=== PATIENT | female | born 1990 | race Hispanic/Latino ===

== ENCOUNTER 2017-06-17 16:20 | Inpatient (IN) | payer OTHER, SELFPAY ==
[2017-06-17] MEDS ORDERED: Metoclopramide HCl 10 MG/2 ML VIAL ONE (16:58)
[2017-06-17 17:09] LABS: #Basophils 0.1 thou/uL (0.0-0.2); #Eosinphils 0.2 thou/uL (0.0-0.7); #Lymphocytes 4.5 thou/uL (1.20-3.40); #Monocytes 0.6 thou/uL (0.11-0.59); #Neutrophils 5.8 thou/uL (1.40-6.50); %Basophils 0.5 % (0.0-1.0); %Lymphocytes 40.3 % (21.0-51.0); %Monocytes 5.5 % (0.0-10.0); Hematocrit 46.4 % (36.0-47.0); Mean Platelet Volume 6.8 fL (7.4-10.4); Red Blood Cell (RBC) Count 5.88 mill/uL (4.20-5.40); White Blood Cell (WBC) Count 11.1 thou/uL (4.8-10.8)
[2017-06-17 17:36] LABS: ALT (SGPT) 41 U/L (8-55); AST (SGOT) 40 U/L (5-34); Alkaline Phosphatase 108 U/L (40-150); Anion Gap 17 mmol/L (10-20); BUN (Urea Nitrogen) 8 mg/dL (7.0-18.7); Bilirubin, Total 0.3 mg/dL (0.2-1.2); Calc. Creatinine Clearance 0 mL/min (70-130); Calcium 9.7 mg/dL (7.8-10.44); Carbon Dioxide 20 mmol/L (22-29); Chloride 100 mmol/L (98-107); Estimated GFR-MDRD Greater than 90; Globulin 4.4 g/dL (2.4-3.5); Protein, Total 8.3 g/dL (6.0-8.3)
[2017-06-17] MEDS ORDERED: Ketorolac Tromethamine 30 MG/ML VIAL ONE (17:37)
[2017-06-17 18:53] LABS: Prothrombin Time 13.8 SEC (12.0-14.7)
[2017-06-17 18:54] LABS: PTT 30.9 SEC (22.9-36.1)
[2017-06-17 19:05] LABS: Troponin I Less than 0.010 ng/mL (< 0.028)
[2017-06-17] MEDS ORDERED: Sodium Chloride 0.9% 1,000 ML IV SCH (19:35)
[2017-06-17] MEDS ORDERED: Ondansetron HCl/PF 4 MG/2 ML Vial IVP PRN (19:35)
[2017-06-17] MEDS ORDERED: Ondansetron ODT 4 MG TAB SL PRN (19:35)
[2017-06-17 19:56] VITALS: BMI 37.6
[2017-06-18] MEDS ORDERED: Milk Of Magnesia 30 ML UDCUP PO PRN (00:57)
[2017-06-18] MEDS ORDERED: Ondansetron HCl/PF 4 MG/2 ML Vial IVP PRN (00:57)
[2017-06-18] MEDS ORDERED: Senokot 8.6 MG TAB PO PRN (00:57)
[2017-06-18] MEDS ORDERED: Dextrose 5% in Water 1,000 ML IV PRN (00:57)
[2017-06-18] MEDS ORDERED: Dextrose 50% Abboject 50 ML SYRINGE SLOW IVP PRN (00:57)
[2017-06-18] MEDS ORDERED: Acetaminophen 325 MG TAB PO PRN (00:57)
[2017-06-18] MEDS ORDERED: Ondansetron ODT 4 MG TAB PO PRN (00:57)
[2017-06-18] MEDS ORDERED: Insulin Regular 300 UNITS/3 ML VIAL SC PRN ×2 (00:57)
[2017-06-18] MEDS ORDERED: Calcium Carbonate 500 MG ChewTAB PO PRN (00:57)
[2017-06-18] MEDS ORDERED: Mag-Al 1200 mg/1200 mg/30 ML UDCUP PO PRN (00:57)
[2017-06-18] MEDS ORDERED: Diabetic Tussin 200 MG/10 ML UDCUP PO PRN (00:59)
[2017-06-18] MEDS ORDERED: Labetalol HCl 100 MG/20 ML VIAL SLOW IVP PRN (00:59)
[2017-06-18] MEDS ORDERED: Ibuprofen 200 MG TAB PO PRN (01:01)
--- NOTE | 2017-06-18 01:46 | HP ---
DATE OF ADMISSION: 06/17/2017 Patient was seen and examined on 06/17/2017. PRIMARY CARE PHYSICIAN: Josee Allen NP, at [facility]. CHIEF COMPLAINT: Headache. HISTORY OF PRESENT ILLNESS: The patient is a 27-year-old female who was recently diagnosed with hyp erthyroidism, currently on methimazole, and migraine headaches in the past, presented to the [facility] with headache that started yesterday afternoon while she was at home. It was constant, throbbing, mainly frontal, aggravated by light. She felt she had some dizziness and nausea that has more or l ess resolved. She denied any phonophobia. The headache was throbbing, moderate in intensity earlie r; however, at the time of my interview, the headache has significantly improved. She has a history of migraines in the past and used to be on suppressive therapy that was later discontinued. She is currently on methimazole for hyperthyroidism that was diagnosed a month ago by her PCP. She was ad vised to follow up with snowboard instructor, however, due to financial reasons, she has not seen an endo crinologist yet. No chest pain, palpitations, or syncope reported. Her test in the emerg ency room was negative. She received Toradol, Reglan, IV fluid, and IV propranolol in the emergency room. Initial vital signs in the emergency room showed temperature 98.4, respirations 19, pulse 10 5 with blood pressure of 140/99 with O2 saturation 99% on room air. Her current heart rate is in 90 s. PAST MEDICAL HISTORY: 1. Polycystic ovarian syndrome. 2. History of migraines in the past. 3. Depression without any suicidal ideation. 4. Hypertension. 5. Diabetes mellitus, type 2. 6. History of tuberculosis that was diagnosed with a lymph node biopsy. She completed 1 year of tr eatment at the age of 13. PAST SURGICAL HISTORY: Lymph node biopsy. ALLERGIES: Patient denies any drug allergies. CURRENT HOME MEDICATIONS: Per patient report, patient is on methimazole, metformin, glipizide, and Aldactone. Exact dosages yet to be confirmed. SOCIAL HISTORY: Patient currently lives at home with her family. No smoking, alcohol, or drug use. FAMILY HISTORY: Positive for hypertension and diabetes mellitus, type 2. REVIEW OF SYSTEMS: The following complete review of systems was negative, unless otherwise mentione d in the HPI or below: Constitutional: Weight loss or gain, ability to conduct usual activities. Skin: Rash, itching. Eyes: Double vision, pain. ENT/Mouth: Nose bleeding, neck stiffness, pain, tenderness. Cardiovascular: Palpitations, dyspnea on exertion, orthopnea. Respiratory: Shortness of breath, wheezing, cough, hemoptysis, fever or night sweats. Gastrointestinal: Poor appetite, abdominal pain, heartburn, nausea, vomiting, constipation, or diar megha. Genitourinary: Urgency, frequency, dysuria, nocturia. Musculoskeletal: Pain, swelling. Neurologic/Psychiatric: Anxiety, depression. Allergy/Immunologic: Skin rash, bleeding tendency. PHYSICAL EXAMINATION: VITAL SIGNS: As discussed above. GENERAL: A 27-year-old female, in no apparent distress. Headache has significantly improved. She denies any nausea and dizziness at this time. HEENT: Head is atraumatic, normocephalic. Sclerae anicteric. Moist mucous membranes. No oral les ion. NECK: Supple, no JVD appreciated. No carotid bruit. LUNGS: Clear to auscultation bilaterally. HEART: S1 and S2 present. Regular rate and rhythm. No murmurs, rubs, or gallops. ABDOMEN: Soft, nontender, obese. Bowel sounds present. EXTREMITIES: No edema or calf tenderness. NEUROLOGIC: Grossly nonfocal, moves all four extremities. PSYCHIATRIC: Alert, awake, oriented x3. SKIN: Warm and dry. There was no pretibial rash. LYMPH NODES: No palpable lymph nodes in the neck. NEUROLOGY: Grossly nonfocal, moves all four extremities. PSYCHIATRY: Alert and awake. LABORATORY DATA AND X-RAY FINDINGS: 1. CBC showed WBC of 11.1, hemoglobin 15.2, hematocrit 46.4, platelets of 424. PT, INR, PTT are in normal range. 2. TSH was less than 0.0025 with free T4 of 1.93. Cardiac enzymes were normal. BNP 13.1. Sodium was 132, potassium was 4.5, chloride of 100, bicarb 20, BUN of 8, creatinine 0.62, glucose 234. 3. Chest x-ray by my review was negative for infiltrate. 4. EKG by my review showed normal sinus rhythm without significant ST-T wave changes. IMPRESSION AND PLAN: 1. Headache, consistent with migraine, improved with Toradol and Reglan. 2. Recently diagnosed with Graves disease. Patient is followed by her PCP and is currently on meth imazole, which will be continued. She probably does not need a beta narinder at this time. Her hear t rate is controlled. 3. Diabetes mellitus, type 2. We will start her on insulin sliding scale. We will resume home med ications once confirmed. We will hold metformin for now. 4. Polycystic ovarian syndrome. We will continue Aldactone. 5. History of tuberculosis in the past, completed treatment. 6. Depression without any suicidal ideation. 7. Dehydration with hyponatremia. Patient received IV fluids in the emergency room. She currently denies any nausea. 8. Hypertension, controlled at this time. 9. Family history of diabetes and hypertension 10. Obesity with a BMI 37.7. 11. Disposition probably in 24 hours. Plan of care was discussed with the patient. She stated understanding.
[2017-06-18] MEDS ORDERED: glipiZIDE 5 MG TAB PO SCH (07:30)
[2017-06-18] MEDS: Methimazole 5 MG TAB PO SCH ×2 (08:07→13:09)
--- NOTE | 2017-06-18 08:15 | RAD ---
SINGLE VIEW OF THE CHEST: Comparison: None. History: Headache, diabetes, dyspnea. FINDINGS: Single view of the chest shows a normal sized cardiomediastinal silhouette. There is no evidence of consolidation, mass, or pleural effusion. The bones are unremarkable. IMPRESSION: No evidence of acute cardiopulmonary disease. POS: [facility]
--- NOTE | 2017-06-18 08:21 | ULT ---
THYROID ULTRASOUND: HISTORY: Severe hyperthyroidism. FINDINGS: Real-time imaging of the right and left lobes of the thyroid were performed. The right lobe measure s 1.8 x 1.9 x 4.4 cm and the left lobe 1.5 x 1.5 x 4.3 cm. Both the right and left lobes have very heterogeneous and somewhat full appearance. There does not appear to be a significant increase in v ascularity. No discrete nodules are demonstrated. IMPRESSION: Heterogeneous gland without definite discrete nodules. POS: [facility]
--- NOTE | 2017-06-18 11:16 | PDOC.PN ---
- Subjective Encounter Start Date: 06/18/17 Encounter Start Time: 11:13 Ms Childs says she is feeling much better. Her headache is completely resolved. - Objective Resuscitation Status: Resuscitation Status FULL:Full Resuscitation MAR Reviewed: Yes Vital Signs & Weight: Vital Signs (12 hours) Temp Pulse Resp BP Pulse Ox 06/18/17 08:31 98.6 F 92 16 131/63 99 06/18/17 04:00 97.8 F 99 18 106/59 L 97 06/18/17 01:31 98 06/18/17 00:00 97.7 F 93 18 114/63 98 Weight Weight 199 lb 6 oz Result Diagrams: 06/17/17 16:53 06/17/17 16:53 Phys Exam - Physical Examination HEENT: PERRLA Respiratory: no wheezing, no rales, no rhonchi, clear to auscultation bilateral Cardiovascular: RRR, no significant murmur, no rub Gastrointestinal: soft, non-tender, positive bowel sounds Musculoskeletal: no edema Dx/Plan (1) Migraine headache Code(s): G43.909 - MIGRAINE, UNSP, NOT INTRACTABLE, WITHOUT STATUS MIGRAINOSUS Status: Acute (2) Hyperthyroidism Code(s): E05.90 - THYROTOXICOSIS, UNSP WITHOUT THYROTOXIC CRISIS OR STORM Status: Acute - Plan * Migraine Headache- will add low dose Propranolol to aid with migraine prophylaxis, as well as her hyperthyroidism * She is stable for discharge home.
[2017-06-18 12:48] VITALS: BP 127/73; TEMP 98.4
--- NOTE | 2017-06-18 13:10 | DIS ---
DATE OF ADMISSION: 06/17/2017 DATE OF DISCHARGE: 06/18/2017 PRIMARY CARE PHYSICIAN: Josee Allen NP at the [facility]. DISCHARGE DISPOSITION: Home. PRIMARY DISCHARGE DIAGNOSES: 1. Migraine headache. 2. History of hyperthyroidism secondary to Graves disease. 3. Hypertension. 4. Diabetes mellitus, type 2. 5. Polycystic ovarian syndrome. DISCHARGE MEDICATIONS: Propranolol 5 mg twice a day will be added. She is to continue methimazole 10 mg daily, spironolactone 25 mg twice daily, glipizide 10 mg twice a day, and metformin 1000 mg tw ice daily. PROCEDURES DONE DURING ADMISSION: The patient had a thyroid ultrasound and showed some heterogeneou s gland without any discrete nodules. CODE STATUS: FULL CODE. ALLERGIES: No known drug allergies. HOSPITAL COURSE: Ms. Childs is a pleasant 27-year-old female, who presented to the emergency room w ith severe headache. She says she has a history of migraine headaches, but her usual medication did not help. The pain was constant, throbbing, aggravated by light. She said it was very similar to previous migraine headache. She was seen in the ER and was given Toradol and Reglan IV as well as p ropranolol. When we came to see her this morning, the patient's headache has completely resolved. She says she feels much better. She is not sure what medication she uses for her migraine headache to abort the headache, but she says that she has some of this. It was also noted that her heart rat e was slightly elevated in the 90s, and she has a history of Graves disease, which is being treated with methimazole. For this reason, we will add a low dose propranolol, both for migraine prophylaxi s as well as to help with her heart rate due to her hyperthyroidism. The patient says she does plan to get a thyroid ablation at some point. She says that her diagnosis had been verified as Graves d isease after she recently had some thyroid antibodies done, which were positive. The patient, there fore, will subsequently be discharged home and to have close followup with Josee Allen in her cli ronni.
== END 2017-06-18 14:08 | disposition home or self-care (01) | DRG 103 ==
LOC: ERS 16:20 → 2NO 18:37
PROVIDERS: ADMIT Family Medicine; ATTEND Family Medicine
DX: G43.909 Migraine, unspecified, not intractable, without status migrainosus (principal); E87.1 Hypo-osmolality and hyponatremia; I10 Essential (primary) hypertension; E28.2 Polycystic ovarian syndrome; F32.9 Major depressive disorder, single episode, unspecified; E11.9 Type 2 diabetes mellitus without complications; Z86.11 Personal history of tuberculosis; E05.00 Thyrotoxicosis with diffuse goiter without thyrotoxic crisis or storm; E86.0 Dehydration; E66.9 Obesity, unspecified; Z68.37 Body mass index [BMI] 37.0-37.9, adult
CPT/HCPCS: 36416; 71010; 76536; 80053; 82553; 83880; 84439; 84443; 84484; 84703; 85025; 85610; 85730; 93005; A4216; J1800; J1885; J2765

== ENCOUNTER 2019-08-02 10:21 | Emergency (ER) | payer BC ==
[2019-08-02] MEDS ORDERED: Acetaminophen 500 MG TAB ONE (11:57)
[2019-08-02 12:08] LABS: #Eosinphils 0.2 thou/uL (0.0-0.7); #Lymphocytes 3.7 thou/uL (1.20-3.40); #Monocytes 0.4 thou/uL (0.11-0.59); %Basophils 0.3 % (0.0-1.0); %Lymphocytes 39.7 % (21.0-51.0); %Monocytes 4.3 % (0.0-10.0); %Neutrophils 53.7 % (42.0-75.0); Hemoglobin 14.6 g/dL (12.0-16.0); Mean Corpuscular HGB CONC 33.1 g/dL (32.0-36.0); Mean Corpuscular Hemoglobin 26.8 pg (27.0-31.0); Mean Corpuscular Volume 80.9 fL (78.0-98.0); Mean Platelet Volume 7.2 fL (7.4-10.4); Platelet Count 410 thou/uL (130-400); Red Blood Cell (RBC) Count 5.46 mill/uL (4.20-5.40); White Blood Cell (WBC) Count 9.3 thou/uL (4.8-10.8)
--- NOTE | 2019-08-02 12:09 | RAD ---
SINGLE VIEW CHEST: Date: 08/02/19 COMPARISON: 06/17/17. HISTORY: Mid sternal chest pain. FINDINGS: Single view of the chest shows a normal sized cardiomediastinal silhouette. There is no evidence of c onsolidation, mass, or pleural effusion. The bones are unremarkable. IMPRESSION: No evidence of acute cardiopulmonary disease. POS: [facility]
[2019-08-02 12:21] LABS: ALT (SGPT) 17 U/L (8-55); AST (SGOT) 18 U/L (5-34); Albumin 4.1 g/dL (3.5-5.0); Alkaline Phosphatase 54 U/L (40-110); Anion Gap 14 mmol/L (10-20); BUN (Urea Nitrogen) 11 mg/dL (7.0-18.7); Bilirubin, Total 0.3 mg/dL (0.2-1.2); Calc. Creatinine Clearance 0 mL/min (70-130); Calcium 9.1 mg/dL (7.8-10.44); Carbon Dioxide 22 mmol/L (22-29); Chloride 105 mmol/L (98-107); Estimated GFR-MDRD Greater than 90; Globulin 3.2 g/dL (2.4-3.5); Glucose 90 mg/dL (70-105); Potassium 4.2 mmol/L (3.5-5.1); Protein, Total 7.3 g/dL (6.0-8.3); Sodium 137 mmol/L (136-145)
== END 2019-08-02 13:23 | disposition home or self-care (01) ==
LOC: ERS 10:21
DX: R07.89 Other chest pain (principal); E11.9 Type 2 diabetes mellitus without complications; E05.90 Thyrotoxicosis, unspecified without thyrotoxic crisis or storm; I10 Essential (primary) hypertension; Z79.899 Other long term (current) drug therapy
CPT/HCPCS: 36415; 71045; 80053; 84484; 85025; 85379; 93005

== ENCOUNTER 2022-08-08 17:23 | Emergency (ER) | payer BC | END 2022-08-08 18:28 | disposition home or self-care (01) | LOC: ERS 17:23 | DX: M62.830 Muscle spasm of back (principal); E11.9 Type 2 diabetes mellitus without complications; E03.9 Hypothyroidism, unspecified | CPT/HCPCS: 99283 ==

== ENCOUNTER 2024-07-06 10:07 | Emergency (ER) | payer OTHER ==
[2024-07-06] MEDS ORDERED: Acetaminophen 500 MG TAB ONE (11:33)
== END 2024-07-06 12:50 | disposition home or self-care (01) ==
LOC: ERS 10:07
DX: S06.0X0A Concussion without loss of consciousness, initial encounter (principal); E11.9 Type 2 diabetes mellitus without complications; W22.8XXA Striking against or struck by other objects, initial encounter
CPT/HCPCS: 70450